=== PATIENT | male | born 1965 | race Caucasian/White ===

== ENCOUNTER 2022-06-30 11:20 | Emergency (ER) | payer MEDICARE ==
--- NOTE | 2022-06-30 11:26 | ERPHSYRPT ---
- History of Present Illness Time Seen by Provider: 06/30/22 11:26 Source: patient, EMS Exam Limitations: clinical condition, other (Patient hard of hearing) Physician History: This is a 56-year-old white male patient who is a resident of [facility] following a hip surgery that was performed 3 to 4 weeks ago. He is therefore rehabilitation. Just prior to arrival to emergency department, the patient had fallen straight down per longterm report onto his buttock from a standing position. He did not hit his head. He did not lose consciousness. He did not injure his neck. EMS/ambulance service brought the patient into the emergency department with a c-collar in place per their protocol. They want the patient evaluated since he recently had the hip surgery. Patient arrives to the emergency department with no complaints. He is awake alert and oriented. He is hard of hearing. But he reads lips well. Patient is diabetic. He has a history of DVT and is on warfarin for treatment and prevention, and he has hyperlipidemia. Patient denies chest pain. He does not have any shortness of breath. Occurred: just prior to arrival Injuries/Pain Location: pelvis (Patient has no complaints of pain in his hips, lower back or upper legs.) Loss of Consciousness: no loss of consciousness Severity of Pain-Max: none Severity of Pain-Current: none Modifying Factors: Improves With: nothing Associated Symptoms (Fall): denies symptoms Allergies/Adverse Reactions: Penicillins Allergy (Verified 06/30/22 11:22) Home Medications: Fenofibrate Nanocrystallized [Fenofibrate] 160 mg PO DAILY 04/08/13 [History] Metformin HCl 1000 mg [Glucophage 1000 MG] 1,000 mg PO BID 04/08/13 [History] Simvastatin 40 mg [Zocor 40 mg] 40 mg PO DAILY 04/08/13 [History] Warfarin Sodium 5 mg [Coumadin 5 MG] 5 mg PO DAILY 04/08/13 [History] Hx Tetanus, Diphtheria Vaccination/Date Given: Yes Hx Influenza Vaccination/Date Given: No Hx Pneumococcal Vaccination/Date Given: No Travel Risk - International Travel Have you traveled outside of the country in past 3 weeks: No - Coronavirus Screening Are you exhibiting any of the following symptoms?: No Close contact with a COVID-19 positive Pt in past 14-21 Days: No - Review of Systems Constitutional: No Symptoms Eyes: No Symptoms Ears, Nose, & Throat: No Symptoms Respiratory: No Symptoms Abdominal/Gastrointestinal: No Symptoms Genitourinary Symptoms: No Symptoms Musculoskeletal: Fall Skin: No Symptoms Neurological: No Symptoms Psychological: No Symptoms Endocrine: No Symptoms Hematologic/Lymphatic: No Symptoms Immunological/Allergic: No Symptoms All Other Systems: Reviewed and Negative - Past Medical History Pertinent Past Medical History: Yes Cardiac History: Deep Vein Thrombosis, High Cholesterol Endocrine Medical History: Diabetes Type II - Past Surgical History Past Surgical History: Yes Cardiac: Vascular Surgery - Social History Smoking Status: Never smoker Exposure to second hand smoke: No Drug Use: none Patient Lives Alone: Yes - Nursing Vital Signs Nursing Vital Signs: Initial Vital Signs Temperature 98.4 F 06/30/22 11:24 Pulse Rate 77 06/30/22 11:24 Respiratory Rate 17 06/30/22 11:24 Blood Pressure 113/66 06/30/22 11:24 O2 Sat by Pulse Oximetry 96 06/30/22 11:24 Pain Scale Pain Intensity 0 - Gravel Switch Coma Score Best Eye Response ([place]): (4) open spontaneously Best Verbal Response ([place] Switch): (5) oriented Best Motor Response ([place]): (6) obeys commands Gravel Switch Total: 15 - Physical Exam General Appearance: no apparent distress, alert Head Injury: no evidence of injury Eye Exam: PERRL/EOMI, eyes nml inspection ENT Exam: airway nml, nml ext.inspection Neck Exam: supple, trachea midline, full range of motion, normal alignment, c- collar in place (Patient's cervical spine was cleared clinically. I remove the c-collar from this patient.) Respiratory/Chest Exam: normal breath sounds, No chest tenderness, No respiratory distress, No ecchymosis, No crepitus Cardiovascular Exam: normal heart sounds, regular rate/rhythm Gastrointestinal Exam: soft, normal bowel sounds, No tenderness Rectal Exam: not done Back Exam: normal inspection, normal range of motion, No CVA tenderness, No vertebral tenderness Extremity Exam: normal inspection, normal range of motion, capillary refill <3 sec, pelvis stable Neurologic Exam: alert, oriented x 3, cooperative, hourly associate II-XII nml as tested Skin Exam: normal color, warm, dry SpO2 Interpretation: normal O2 Delivery: Room Air - Course Nursing assessment & vital signs reviewed: Yes Ordered Tests: Active Orders 24 hr Category Date Time Status HIPS TO(2V) INCL PEL IF DONE Stat Exams 06/30/22 11:35 Completed LUMBAR LIMITED (2 OR 3 VIEWS) Stat Exams 06/30/22 11:35 Completed - Progress Progress Note: 06/30/22 12:28 This patient's medical issue is 1 of low complexity. The work-up performed and the level of complexity is based on the review of the patient's past medical history, review of the patient's medication list, review of the patient drug allergy list, history of present illness and physical findings on examination. This patient required an x-ray of the lumbar spine and bilateral hips and pelvis. The x-rays of the bilateral hips and pelvis as well as the lumbar spine were interpreted by the radiologist and I reviewed the results. There are no acute fractures or dislocations in the hip and pelvis x-ray. There is no acute fracture or subluxation in the lumbar spine. We will discharge the patient to his longterm. Counseled pt/family regarding: diagnosis, need for follow-up, rad results Medical Desision Making - Independent Historian Additional History obtained from: Occupational Therapy Program Director/EMT - Discussion of managment Agreed on:: Treatment plan, need for follow-up - Social Determinants of Health Limited access to: transportation - Diagnostic Testing Radiological Interpretation: Reviewed by me, Teleradiologist Report - Risk of complications Low Risk: Low risk of morbidity from additional dx testing or treatment - Departure Departure Disposition: Home Clinical Impression: Fall Condition: Stable Critical Care Time: No Referrals: JAMES VILLALPANDO PA [NON-STAFF PHY W/O PRIVILEGES] - Follow up/PCP as directed Additional Instructions: Continue same longterm orders. Follow-up with primary care provider and orthopedic surgeon as needed/instructed
--- NOTE | 2022-06-30 12:14 | XRAY ---
Indication: Pain following fall. Comparison: None 3 view lumbar spine demonstrates 5 lumbar segments with osteopenia, minimal multilevel thoracolumbar endplate spurring, mild bilateral L5-S1 degenerative facet hypertrophy, incompletely visualized right total hip arthroplasty, and incompletely visualized left proximal femur orthopedic screws. No other bony, articular, or soft tissue abnormalities.
--- NOTE | 2022-06-30 12:16 | XRAY ---
Indication: Pain following fall. Comparison: None AP pelvis and 2 view left/right hip demonstrates osteopenia, mild bilateral L5-S1 degenerative facet hypertrophy, right total hip arthroplasty with intact bipolar prosthesis, and old proximal left femur fracture with 3 intact fixation screws. No other bony, articular, or soft tissue abnormalities.
[2022-06-30 12:25] VITALS: PULSE 64
[2022-06-30 12:52] VITALS: BP 100/55; O2SAT 96
== END 2022-06-30 13:04 ==
LOC: ED 11:20
DX: Z04.3 Encounter for examination and observation following other accident (principal); Z98.890 Other specified postprocedural states; Z86.718 Personal history of other venous thrombosis and embolism; E11.9 Type 2 diabetes mellitus without complications; E78.5 Hyperlipidemia, unspecified; Z79.84 Long term (current) use of oral hypoglycemic drugs; Z79.01 Long term (current) use of anticoagulants; Z79.899 Other long term (current) drug therapy; Z59.82 Transportation insecurity
CPT/HCPCS: 72100; 73521; 99283